=== PATIENT | female | born 1950 | race Caucasian/White ===

== ENCOUNTER 2018-09-30 07:15 | Outpatient (CLI) | payer BC ==
--- NOTE | 2018-09-30 10:52 | MRI ---
MRI Lower Ext Jt Rt WO Con History: M 78.821 posterior tibial tendinitis of right leg Comparison: Radiograph June 13, 2018 Findings: Ligaments: The ATFL and PITFL are intact. The superficial and deep deltoid ligaments are in tact. The ATFL and CFL are thickened, likely from prior tear. Tendons: Achilles tendon is intact. The extensor tendons are intact. No subluxation of the peroneal t endons. High-grade interstitial tearing of the posterior tibial tendon beginning at the level of the ankle mili int to its terminal insertions. High-grade tearing at the navicular. Bones: There is an abnormal joint effusion of the calcaneocuboid joint with loss of cartilage and sma ll osteophyte formation. Mild cartilage loss of the posterior and middle subtalar joints. Mild cartilage loss of the tibiotalar joint. Type II os navicularis. Lisfranc interval appears maintained. Muscles: Muscle signal and bulk is normal. Soft tissues: Mild thickening central band plantar fascia with low-grade adjacent edema. Impression: 1. High-grade interstitial tear of the posterior tibial tendon at the level of the ankle joint with e xtensive insertional tendinosis and partial tearing. 2. Abnormally thickened ATFL and CFL likely from prior tear. 3. Type II os navicularis. 4. Mild thickening central band plantar fascial with low-grade adjacent soft tissue edema. 5. Small erosion posterior medial talus just posterior to the articular surface can be seen with post erior impingement.
== END 2018-09-30 07:16 | disposition home or self-care (01) ==
LOC: SCSMRI 07:15
PROVIDERS: ATTEND Orthopaedic Surgery
DX: M76.821 Posterior tibial tendinitis, right leg (principal); S96.811A Strain of other specified muscles and tendons at ankle and foot level, right foot, initial encounter; M79.89 Other specified soft tissue disorders

== ENCOUNTER 2020-11-14 15:04 | Outpatient (CLI) | payer BC | END 2020-11-14 15:05 | disposition home or self-care (01) | LOC: BICMAMMO 15:04 | PROVIDERS: ATTEND Internal Medicine | DX: Z12.31 Encounter for screening mammogram for malignant neoplasm of breast (principal) | CPT/HCPCS: 77063; 77067 ==

== ENCOUNTER 2023-12-23 11:39 | Outpatient (CLI) | payer MEDICARE | END 2023-12-23 11:40 | disposition home or self-care (01) | LOC: BICULT 11:39 | PROVIDERS: ATTEND Nurse Practitioner Family | DX: R31.9 Hematuria, unspecified (principal) | CPT/HCPCS: 76856; 93976 ==